=== PATIENT | female | born 1990 | race Caucasian/White ===

== ENCOUNTER 2018-09-20 05:22 | Emergency (ER) | payer SELFPAY ==
[~2018-09-20] VITALS: Wt 96.0 kg
[2018-09-20] MEDS ORDERED: SOD CHLORIDE 0.9% 1,000 ML IV ONE (06:18)
--- NOTE | 2018-09-20 06:21 | ERD ---
ER Documentation Chief Complaint Chief Complaint AP X'S 4 DAYS HPI 27-year-old female, previously healthy, , presents to the emergency department, complaining of 3 days with right lower quadrant abdominal pain. The pain is dull, constant, 5/10, without radiation. No nausea or vomiting. No vaginal discharge, no urinary symptoms. The patient denies diarrhea or constipation. No medications taken at this time. Her past medical history is significant for pelvic inflammatory disease, diagnosed in the emergency department at [facility] 4 months ago. ROS All systems reviewed and are negative except as per history of present illness. Medications Home Meds Active Scripts Ibuprofen* (Motrin*) 400 Mg Tab, 400 MG PO Q8, #15 TAB Prov:GENESIS MONTANO MD 09/20/18 Doxycycline Hyclate* (Doxycycline Hyclate*) 100 Mg Tablet.dr, 100 MG PO BID for 10 Days, TAB Prov:GENESIS MONTANO MD 09/20/18 Allergies Allergies: Coded Allergies: No Known Allergy (Unverified , 09/20/18) PMhx/Soc History of Surgery: No Anesthesia Reaction: No Hx Neurological Disorder: No Hx Respiratory Disorders: No Hx Cardiac Disorders: No Hx Psychiatric Problems: No Hx Miscellaneous Medical Probl: No Hx Alcohol Use: No Hx Substance Use: No Hx Tobacco Use: No FmHx Family History: diabetes, coronary disease Physical Exam Vitals Vital Signs Date Temp Pulse Resp B/P (MAP) Pulse Ox O2 O2 Flow FiO2 Time Delivery Rate 09/20/18 96.0 88 18 153/76 100 05:25 (101) Physical Exam Patient alert, oriented, vital signs stable. HEENT: Normocephalic, atraumatic. EYES: PERRLA, EOMI, Sclera and conjunctiva appear normal. EARS: Canals clear, tympanic membranes WNL. THROAT: Normal oropharynx. NECK: Supple, No lymphadenopathy. Full ROM without pain or tenderness. HEART: RRR, no rubs, murmurs, clicks or gallops. LUNGS: Clear to auscultation. ABDOMEN: Soft, tenderness to palpation of the pelvic area, no definitive peritoneal signs. : Normal external genitalia, no cervical motion tenderness, no vaginal discharge. EXTREMITIES: No edema bilaterally. BACK: Full ROM, no deformity, normal back exam NEURO: Cranial nerves grossly intact, no motor or sensory deficit Result Diagram: 09/20/18 0632 09/20/18 0632 Results 24 hrs Laboratory Tests Test 09/20/18 06:32 White Blood Count 7.0 10^3/ul Red Blood Count 3.12 10^6/ul Hemoglobin 8.9 g/dl Hematocrit 28.9 % Mean Corpuscular Volume 92.6 fl Mean Corpuscular Hemoglobin 28.5 pg Mean Corpuscular Hemoglobin Concent 30.8 g/dl Red Cell Distribution Width 13.2 % Platelet Count 520 10^3/UL Mean Platelet Volume 9.3 fl Immature Granulocytes % 0.400 % Neutrophils % 74.8 % Lymphocytes % 15.0 % Monocytes % 8.0 % Eosinophils % 1.4 % Basophils % 0.4 % Nucleated Red Blood Cells % 0.0 /100WBC Immature Granulocytes # 0.030 10^3/ul Neutrophils # 5.3 10^3/ul Lymphocytes # 1.1 10^3/ul Monocytes # 0.6 10^3/ul Eosinophils # 0.1 10^3/ul Basophils # 0.0 10^3/ul Nucleated Red Blood Cells # 0.0 10^3/ul Urine Color YELLOW Urine Clarity CLEAR Urine pH 5.0 Urine Specific [place] 1.018 Urine Ketones NEGATIVE mg/dL Urine Nitrite NEGATIVE mg/dL Urine Bilirubin NEGATIVE mg/dL Urine Urobilinogen NEGATIVE mg/dL Urine Leukocyte Esterase TRACE Sandrita/ul Urine Microscopic RBC 0 /HPF Urine Microscopic WBC 9 /HPF Urine Mucus FEW /HPF Urine Hemoglobin NEGATIVE mg/dL Urine Glucose NEGATIVE mg/dL Urine Total Protein NEGATIVE mg/dl Sodium Level 142 mmol/L Potassium Level 3.4 mmol/L Chloride Level 102 mmol/L Carbon Dioxide Level 28 mmol/L Anion Gap 12 Blood Urea Nitrogen 12 mg/dl Creatinine 0.54 mg/dl Est Glomerular Filtrat Rate mL/min > 60 mL/min Glucose Level 105 mg/dl Calcium Level 8.6 mg/dl Total Bilirubin 0.1 mg/dl Direct Bilirubin 0.00 mg/dl Indirect Bilirubin 0.1 mg/dl Aspartate Amino Transf (AST/SGOT) 22 IU/L Alanine Aminotransferase (ALT/SGPT) 28 IU/L Alkaline Phosphatase 63 IU/L Total Protein 7.3 g/dl Albumin 3.6 g/dl Globulin 3.70 g/dl Albumin/Globulin Ratio 0.97 Lipase 34 U/L Current Medications Medications Dose Sig/Elliott Start Time Status Last (Trade) Ordered Route PRN Stop Time Admin Dose Reason Admin Sodium 1,000 ml @ Q1H ONCE 09/20/18 DC 09/20/18 Chloride 1,000 mls/hr IV 06:18 07:08 09/20/18 07:17 Ondansetron 4 mg ONCE ONCE 09/20/18 DC 09/20/18 HCl (Zofran IV 06:24 07:09 Inj) 09/20/18 06:25 Ketorolac 15 mg ONCE ONCE 09/20/18 DC 09/20/18 Tromethamine IV 06:24 07:08 (Toradol) 09/20/18 06:25 Ceftriaxone 50 ml @ ONCE ONCE 09/20/18 DC 09/20/18 Sodium 100 mls/hr IVPB 09:00 09:47 09/20/18 09:29 Patient: GALLO GUEVARA : 1990 Age: 27 Sex: F MR #: [id number] DOS: 09/20/18617 Ordering MD: GENESIS MONTANO MD Location: [facility] Room/Bed: PROCEDURE: CT Abdomen and pelvis without contrast. CLINICAL INDICATION: Abdominal pain. TECHNIQUE: CT scan of the abdomen and pelvis without contrast was performed on a multidetector high-resolution CT scan. . Coronal and sagittal reformatted images were obtained from the axial source images. Standard CT scan of the abdomen pelvis without contrast protocols were performed. The total exam CTDI equals 7.76 mGy and the total exam DLP equals 407.59 mGy-cm. One or more of the following dose reduction techniques were used: - Automated exposure control. - Adjustment of the mA and/or kV according to patient size. Use of iterative reconstruction technique. Dicom images are available COMPARISON: None. FINDINGS: Moderate stool burden throughout the right colon. The colon is otherwise unremarkable. A definite appendix is not visualized however no CT evidence of appendicitis. Stomach and small bowel unremarkable. Kidneys are normal in size without hydronephrosis or intra renal masses bilaterally. There is a 5 mm inferior right renal nonobstructing calculus. No other urinary calculi. No obstructive uropathy bilaterally. The bladder is contracted otherwise unremarkable. Globular uterus without definite focal lesion. In the left adnexa extending superiorly in the posterior midline of the lower abdominal cavity is a large 10 cm cystic mass is likely a left ovarian / para ovarian cyst. Pelvic ultrasound is recommended for further evaluation. No other adnexal masses. No evidence of intra-abdominal free air fluid abscesses or lymphadenopathy. Hepatomegaly without focal lesion. Spleen pancreas adrenal glands and gallbladder unremarkable. No evidence biliary ductal dilation. Aorta unremarkable. Abdominal pelvic wall unremarkable. Multi focal patchy ground-glass opacities involving the lung bases consistent with subsegmental atelectasis/pneumonitis. Degenerative changes lower thoracic and lumbar spine without acute osseous findings are osteoblastic/osteolytic lesions. IMPRESSION: 1. 5 mm inferior right renal nonobstructing calcified calculus. No other calcified urinary calculi or obstructive uropathy bilaterally. 2. Large 10 cm cystic mass left adnexa extending into the posterior midline lower abdominal cavity likely a left ovarian / para ovarian cyst. Pelvic ultrasound is suggested. 3. Moderate stool burden involving the right colon. No evidence of appendicitis or diverticulitis. 4. Hepatomegaly without focal lesion. 5. Multi focal patchy ground-glass opacities involving the lung bases consistent with subsegmental atelectasis/pneumonitis. RPTAT:AAJJ Physician Red Date Time Electronically viewed and signed by Physician Red on 09/20/2018 07:55 BM/ CC: GENESIS MONTANO MD [id number] DIAGNOSTIC IMAGING REPORT Patient: GALLO GUEVARA : 1990 Age: 27 Sex: F MR #: [id number] DOS: 09/20/18 0834 Ordering MD: GENESIS MONTANO MD Location: [facility] Room/Bed: PROCEDURE: US Pelvis Non-OB with endovaginal scanning and Doppler CLINICAL INDICATION: Left adnexa cyst TECHNIQUE: Images were taken during real time trans pelvic and endovaginal interrogation. Color-flow and Doppler interrogation of the ovaries was performed. COMPARISON: Comparison to the previous CT of the abdomen and pelvis done earlier on the same date. On the previous CT, a 10 cm cystic structure was seen in the left adnexal region. A 5 mm nonobstructing nephrolith was seen within the inferior pole right kidney. The liver was enlarged. FINDINGS: Uterus: The uterus is retroverted and normal in size measuring 8.32 cm in sagittal diameter and 5.09 cm x a 3.5 cm exophytic mass is seen to extend posteriorly off the uterine fundus. in cross diameter. The endometrial stripe measures 0.97 cm. Ovaries: The right ovary measures 3.28 cm x 2.5 cm x 1.87 cm and appears unremarkable. At the location of the left ovary there is a complex largely septated cystic cystic and partially solid mass measuring 10.0 x 8.6 x 6.6 cm. No separate ovary is identified. There is vascular flow on Doppler involve the normal appearing right ovary and to a greater extent within the left adnexal mass. Adnexa: The left adnexal mass was described above. No right adnexal mass was identified. Free intraperitoneal fluid: A small amount of free intraperitoneal fluid was seen in the cul-de-sac. IMPRESSION: 1. Retroverted normal sized uterus with the endometrial stripe measuring 9.7 mm. A 3.5 cm exophytic fibroid extends posteriorly off the uterine fundus. 2. Complex left adnexal mass which is largely cystic and septated with a solid component and with prominent vascularity suspicious for left ovarian neoplasm. Consider surgical evaluation. The right ovary appears normal and demonstrates normal vascular flow on Doppler. 3. Small amount of free intraperitoneal fluid seen in the cul-de-sac.. Physician Deisi Date Time Electronically viewed and signed by Physician Deisi on 09/20/2018 09:59 RH/ CC: GENESIS MONTANO MD [phone] Procedures/MDM Vital signs stable. Differential diagnosis considered include UTI, cystitis, , endometriosis, pelvic inflammatory disease, ruptured ovarian cyst, ectopic , appendicitis, kidney stone. Less likely malignancy or acute abdomen but is still a possibility. During the ED course the patient remained stable, no new complaints. The patient received treatment with IV fluids and IV medications presenting overall improvement of the symptoms. At this time, no evidence of torsion or acute abdomen or PID, therefore, the patient requires outpatient follow-up for evaluation of the complex cyst. Results and clinical impression discussed with the patient who agrees with management. The patient is stable to be treated outpatient and will be discharg ed. some side effects of prescribed medications (headache, rash, nausea, vomiting, diarrhea, drowsiness, habituation, bleeding, hypertension, interactions with other medications) were reviewed. Follow up with the primary care provider in the next 48h has been recommended. If symptoms persist, worsen or new symptoms develop, then patient should return to the ED immediately. Instructions explained and given directly by me to the patient with acknowledgment and demonstrated understanding. Disclaimer: Inadvertent spelling and grammatical errors are likely due to EHR/dictation software use and do not reflect on the overall quality of patient care. Also, please note that the electronic time recorded on this note does not necessarily reflect the actual time of the patient encounter. Departure Diagnosis: Primary Impression: Complex cyst of left ovary Additional Impression: Anemia Condition: Stable Additional Instructions: Thank you very much for allowing us to participate in your care. Your health and safety is our top priority at [facility]. Call your primary care doctor TOMORROW for an appointment during the next 2-4 days and bring all the information and medications prescribed. Have prescriptions filled and follow precisely the directions on the label. If the symptoms get worse and your provider is unavailable, return to the Emergency Department immediately. GENESIS MONTANO MD Sep 20, 2018 06:21
[2018-09-20] MEDS ORDERED: KETOROLAC 15 MG INJ IV ONE (06:24)
[2018-09-20] MEDS ORDERED: ONDANSETRON 4 MG INJ IV ONE (06:24)
[2018-09-20] MEDS ORDERED: CEFTRIAXONE 1 GM/50 ML (PMX) 50 ML IVPB ONE (09:00)
[2018-09-20] MEDS ORDERED: IBUP-1561 PO (10:34)
[2018-09-20] MEDS ORDERED: DOXY100T20 PO (10:34)
== END 2018-09-20 10:43 | disposition home or self-care (01) ==
LOC: FTE 05:22
DX: N83.202 Unspecified ovarian cyst, left side (principal); D64.9 Anemia, unspecified
CPT/HCPCS: 36415; 74176; 76830; 76856; 80053; 81001; 83690; 85025; 96374; 96375; 99285; J0696; J1885; J2405; J7030